=== PATIENT | male | born 1970 | race American Indian/Alaskan Native ===

== ENCOUNTER 2017-01-18 08:53 | Emergency (ER) | payer OTHER ==
[2017-01-18 10:11] LABS: Basophils % (Auto) 0.8 % (0.0-1.8); Eosinophils % (Auto) 1.9 % (0.0-4.3); Hematocrit 41.6 % (35.5-45.6); Hemoglobin 13.6 gm/dl (11.8-15.2); Mean Corpuscular HGB Conc 33 % (32-34); Mean Corpuscular Hemoglobin 28 pg (28-32); Mean Corpuscular Volume 86 fl (84-94); Platelet Count 256 K/mm3 (140-440); Red Blood Count 4.87 M/mm3 (3.65-5.03); Red Cell Distribution Width 12.7 % (13.2-15.2); White Blood Count 5.8 K/mm3 (4.5-11.0)
[2017-01-18 10:24] LABS: Anion Gap 18 mmol/L; BUN/Creatinine Ratio 11; Blood Urea Nitrogen 10 mg/dL (9-20); Calcium 8.7 mg/dL (8.4-10.2); Carbon Dioxide 24 mmol/L (22-30); Chloride 100.3 mmol/L (98-107); Glucose 158 mg/dL (75-100); Potassium 4.7 mmol/L (3.6-5.0); Sodium 138 mmol/L (137-145)
--- NOTE | 2017-01-18 16:40 | Emergency Department Report ---
ED Chest Pain HPI - General Chief Complaint: Chest Pain Stated Complaint: CHEST PAIN Time Seen by Provider: 01/18/17 15:58 Source: patient Mode of arrival: Ambulatory Limitations: No Limitations - History of Present Illness Initial Comments: This is a 46 year-old male presents to the emergency department with complaint of some left-sided chest pain that started around 3 AM , worsened around 7:30 AM but has now resolved during his 7 hour ED course. He has a history of [id number] diabetes. He denies any tobacco or illicit drug use or abuse. With his chest discomfort, he denied any shortness of breath, nausea, vomiting, back pain or diaphoresis. The pain sometimes would worsen with certain movements of his arms. 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 No recent travel or sick contacts at home. His primary care physician is a Dr. shipman. Severity scale (0 -10): 7 - Related Data Previous Rx's Medication Instructions Recorded Last Taken Type Ibuprofen 800 mg PO Q8H PRN #20 tablet 01/18/17 Unknown Rx Allergies Allergy/AdvReac Type Severity Reaction Status Date / Time No Known Allergies Allergy Unverified 01/18/17 09:29 Heart Score - HEART Score History: Slightly suspicious EKG: Normal Age: 45-65 Risk factors: 1-2 risk factors Troponin: < normal limit HEART Score: 2 - Critical Actions Critical Actions: 0-3 pts:0.9-1.7%risk of adverse cardiac event.Candidate for discharge ED Review of Systems ROS: Stated complaint: CHEST PAIN Other details as noted in HPI Comment: All other systems reviewed and negative Constitutional: denies: chills, fever Eyes: denies: eye pain, eye discharge, vision change ENT: denies: ear pain, throat pain Respiratory: denies: cough, shortness of breath, wheezing Cardiovascular: chest pain. denies: palpitations Gastrointestinal: denies: abdominal pain, nausea, diarrhea Genitourinary: denies: urgency, dysuria Musculoskeletal: denies: back pain, joint swelling, arthralgia Skin: denies: rash, lesions Neurological: denies: headache, weakness, paresthesias ED Past Medical Hx - Past Medical History Previous Medical History?: Yes Hx Diabetes: Yes - Surgical History Past Surgical History?: No - Social History Smoking Status: Never Smoker Substance Use Type: None - Medications Home Medications: Home Medications Medication Instructions Recorded Confirmed Last Taken Type Ibuprofen 800 mg PO Q8H PRN #20 tablet 01/18/17 Unknown Rx ED Physical Exam - General Limitations: No Limitations - Other Other exam information: GENERAL: The patient is well-developed well-nourished. HENT: Normocephalic. Atraumatic. Patient has moist mucous membranes. EYES: Extraocular motions are intact. Pupils equal reactive to light bilaterally. NECK: Supple. Trachea is midline. CHEST/LUNGS: Clear to auscultation. There is no respiratory distress noted. HEART/CARDIOVASCULAR: Regular. There is no tachycardia. There is no gallop rub or murmur. ABDOMEN: Abdomen is soft, nontender. Patient has normal bowel sounds. There is no abdominal distention. SKIN: Skin is warm and dry. NEURO: The patient is awake, alert, and oriented. The patient is cooperative. The patient has no focal neurologic deficits. The patient has normal speech and gait. MUSCULOSKELETAL: There is no tenderness or deformity. There is no limitation range of motion. There is no evidence of acute injury. ED Course Vital Signs 01/18/17 01/18/17 01/18/17 09:30 14:46 14:49 Temperature 97.8 F Pulse Rate 76 74 77 Respiratory 18 16 18 Rate Blood Pressure 155/97 Blood Pressure 148/91 [left arm] O2 Sat by Pulse 97 97 Oximetry 01/18/17 01/18/17 01/18/17 15:00 15:30 16:00 Temperature Pulse Rate 76 79 70 Respiratory 15 22 19 Rate Blood Pressure 148/91 130/88 130/88 Blood Pressure [left arm] O2 Sat by Pulse 98 97 93 Oximetry 01/18/17 16:30 Temperature Pulse Rate 71 Respiratory 20 Rate Blood Pressure 139/87 Blood Pressure [left arm] O2 Sat by Pulse 98 Oximetry BECKIE score - Beckie Score Age > 65: (0) No Aspirin use within the Past 7 Days: (0) No 3 or more CAD Risk Factors: (0) No 2 or more Angina events in past 24 hrs: (0) No Known CAD with more than 50% Stenosis: (0) No Elevated Cardiac Markers: (0) No ST Deviation Greater than 0.5mm: (0) No BECKIE Score: 0 ED Medical Decision Making - Lab Data Result diagrams: 01/18/17 09:54 01/18/17 09:54 - EKG Data -: EKG Interpreted by Me EKG shows normal: sinus rhythm, axis, intervals, QRS complexes (some mild early repolarization), ST-T waves Rate: normal - EKG Data When compared to previous EKG there are: previous EKG unavailable Interpretation: normal EKG - Radiology Data Radiology results: image reviewed interpreted by me: Chest x-ray does not show any acute process. There are no pleural effusions, obvious pneumonia and there is no pneumothorax. - Medical Decision Making This patient originally presented after having some chest pain but that has since resolved and he is currently symptomatically. His only risk factor at this time for coronary artery disease is his diabetes which appears well- controlled. His EKGs have been normal 2. Negative troponins 3. The rest of labs unremarkable as well. Chest x-ray does not show any acute process. The patient is low on the heart score criteria. He has a BECKIE score of 0. He is low on the well's score criteria and negative on the pulmonary embolism rule out criteria. From these reasons patient appears safe for discharge home at this time. He has agreed that he will return to the emergency department immediately with any return of his chest pain. If not, he has been given a referral for cardiology for follow-up and possible outpatient stress test. - Differential Diagnosis SC, question enteritis, pneumonia, GERD Critical Care Time: No Critical care attestation.: If time is entered above; I have spent that time in minutes in the direct care of this critically ill patient, excluding procedure time. ED Disposition Clinical Impression: Intermittent chest pain Disposition: TO HOME OR SELFCARE Is pt being admited?: No Condition: Stable Instructions: Chest Pain (ED), Costochondritis (ED) Additional Instructions: Please follow-up with your primary care doctor in the next few days. I have given you a referral for a local web site specialist, Dr. Dillard, to follow up regarding your previous chest pain. Return to the emergency department immediately with any return of your chest pain, or any acute distress. Prescriptions: Ibuprofen 800 mg PO Q8H PRN #20 tablet PRN Reason: Pain Referrals: ANIL SHIPMAN MD [Primary Care Provider] - 3-5 Days LAM DILLARD MD [Staff Physician] - 3-5 Days Time of Disposition: 16:54
[2017-01-18 17:02] VITALS: BP 139/87
--- NOTE | 2017-01-18 22:12 | XRay Report ---
FINAL REPORT PROCEDURE: Portable upright chest x-ray TECHNIQUE: Chest radiograph anteroposterior view. CPT 92712 HISTORY: Chest pain COMPARISON: No prior studies are available for comparison. FINDINGS: Heart: Normal. Mediastinum/Vessels: Normal. Lungs/Pleural space: Normal. Bony thorax: No acute osseous abnormality. Life support devices: None. IMPRESSION: No acute cardiopulmonary abnormality.
== END 2017-01-18 17:02 | disposition home or self-care (01) ==
LOC: ED 08:53
DX: R07.89 Other chest pain (principal); E11.9 Type 2 diabetes mellitus without complications
CPT/HCPCS: 36415; 71010; 80048; 82962; 84484; 85025; 93005; 93010; 99284